=== PATIENT | male | born 1965 | race Caucasian/White ===

== ENCOUNTER 2016-07-10 16:50 | Emergency (ER) | payer OTHER ==
--- NOTE | 2016-07-10 18:34 | DX ---
3 views right third digit Reason for examination: Pain following trauma. FINDINGS: A fracture is not identified. The bone alignment is normal. No radiopaque foreign body is s een. IMPRESSION: Negative for fracture.
--- NOTE | 2016-07-10 18:38 | EDPHY ---
H & P Stated Complaint: Hit finger and head against a wall this morning. HPI/ROS: Chief complaint: Right middle finger injury, head injury History of present illness: This is a 50-year-old male who presents to the emergency department for a right middle finger injury and head injury. Patient states this morning he struck his hand and head against a wall. Since then he has had pain and bruising in his right middle finger. He can still move the finger. There is no report of open wounds, paresthesias or abnormal coolness to the finger. In regards to the head injury he states there was no loss of consciousness. He denies headache or neck pain. He denies paresthesias, weakness or paralysis or bowel or bladder dysfunction. Review of systems: A 10 point review of systems was obtained and other than described above was negative - Personal History Current Tetanus Diphtheria and Acellular Pertussis (TDAP): Yes - Medical/Surgical History Hx Asthma: No Hx Chronic Respiratory Disease: No Hx Diabetes: No Hx Cardiac Disease: No Hx Renal Disease: No Hx Cirrhosis: No Hx Alcoholism: No Hx HIV/AIDS: No Hx Splenectomy or Spleen Trauma: No Other PMH: l ankle reconstruction (ligament, muscle, tendon). bilat calf muscle tears. previous injury to l knee . r toe cartilage damage repair/ bone spurs. appy - Social History Smoking Status: Never smoked - Physical Exam Exam: General Appearance: Alert, nontoxic Eyes: PERRLA ENT: No hemotympanum, no rankin sign, no raccoon eyes Respiratory: Lungs clear to auscultation bilaterally Cardiac: Regular rate and rhythm. Neurological: Alert and oriented x4. Cranial nerves 2-12 grossly intact. Strength and sensation intact and symmetrical. Skin: No lesions consistent with trauma to the head. There is bruising to the flexor surface of the proximal right middle finger. No open wounds. Musculoskeletal: Head is normocephalic, atraumatic. The spine is nontender to palpation along its entire length. Chest wall intact palpation. There is tenderness to the proximal right middle finger. He is flexing and extending in the DIPJ, PIP and MCP joint without difficulty. He is moving all other fingers in the right hand in the other extremities without difficulty. Constitutional: Initial Vital Signs Temperature (C) 36.7 C 07/10/16 17:06 Heart Rate 71 07/10/16 17:06 Respiratory Rate 16 01/19/17 17:06 Blood Pressure 139/94 H 07/10/16 17:06 O2 Sat (%) 95 07/10/16 17:06 O2 Delivery Mode Room Air Allergies/Adverse Reactions: No Known Allergies Allergy (Unverified 06/04/15 20:19) Home Medications: Medication Instructions Recorded Allopurinol 07/22/14 Medical Decision Making - Diagnostics Imaging: X-ray series of the right middle finger is negative for acute injury ED Course/Re-evaluation: Patient seen under the supervision of my secondary supervising physician Dr. Michael Schaffer. Patient presents to the emergency department for a right middle finger and head injury. His finger is neurovascularly intact. X-rays negative. Likely contusion versus sprain or strain. My suspicion for serious head injury is low, I do not believe imaging studies are warranted. By history and physical exam no evidence of trauma to other parts of the body. Patient will be discharged home. Home care is discussed. He is referred to hand surgery for recheck. Strict return precautions are given. Patient voiced understanding and agreement with plan. Differential Diagnosis: Included but not limited to contusion, sprain or strain, bony fracture, joint dislocation, unlikely intracranial bleed or spinal cord injury Departure - Departure Disposition: Home, Routine, Self-Care Clinical Impression: Finger contusion Qualifiers: Encounter type: initial encounter Finger: middle finger Damage to nail status: without damage Laterality: right Qualifier Code: (S60.031A) Contusion of right middle finger without damage to nail, initial encounter Minor head injury Qualifiers: Encounter type: initial encounter Qualifier Code: (S00.90XA) Unspecified superficial injury of unspecified part of head, initial encounter Condition: Good Instructions: Hematoma (ED) Additional Instructions: Follow-up with a hand doctor next week for recheck Ice the injury, 20 minutes on, 3 times daily for the next 3 days Use ibuprofen 600 mg 3 times a day for the next 2-3 days If symptoms worsen or new symptoms develop return to the emergency department for recheck Referrals: Marisel Mendiola PA [Primary Care Provider] - As per Instructions Onesimo Rasheed MD [Medical Doctor] - As per Instructions
[2016-07-10 18:45] VITALS: BP 135/102; PULSE 63; RESP 18; TEMP 98.2; O2SAT 96
== END 2016-07-10 18:45 | disposition home or self-care (01) ==
DX: S09.90XA Unspecified injury of head, initial encounter (principal); S60.031A Contusion of right middle finger without damage to nail, initial encounter; W22.8XXA Striking against or struck by other objects, initial encounter; Y93.89 Activity, other specified

== ENCOUNTER → 2017-05-28 | Outpatient (CLI) | payer OTHER | LOC: FIMAGING 08:34 | PROVIDERS: ATTEND Physician Assistant | DX: R13.10 Dysphagia, unspecified (principal); J06.9 Acute upper respiratory infection, unspecified ==

== ENCOUNTER → 2018-03-04 | Outpatient (CLI) | payer BC | LOC: FIMAGING 12:26 | PROVIDERS: ATTEND Internal Medicine | DX: M25.552 Pain in left hip (principal) ==

== ENCOUNTER → 2018-04-19 | Outpatient (CLI) | payer BC ==
[~2018-04-19] MED LIST: IOPAMIDOL (ISOVUE-300) 100 ML BTL ONE
== END ==
LOC: FIMAGING 15:13
PROVIDERS: ATTEND Physician Assistant
DX: K57.32 Diverticulitis of large intestine without perforation or abscess without bleeding (principal); K57.30 Diverticulosis of large intestine without perforation or abscess without bleeding; N28.1 Cyst of kidney, acquired; Q63.1 Lobulated, fused and horseshoe kidney; M51.36 Other intervertebral disc degeneration, lumbar region
CPT/HCPCS: Q9967